=== PATIENT | male | born 1950 | race Caucasian/White ===

== ENCOUNTER 2023-11-29 19:26 | Emergency (ER) | payer MEDICARE, OTHER, SELFPAY ==
[2023-11-29 19:31] VITALS: BP 117/73
[2023-11-29 19:33] VITALS: BP 117/73
[2023-11-29 19:38] VITALS: BMI 33.6
[2023-11-29 20:00] VITALS: BP 111/65; BP 112/67
--- NOTE | 2023-11-29 20:05 | ED.GENMED ---
History of Present Illness
General
Chief Complaint: Fainting/Passed Out
Source: patient and family
Time Seen by Provider: 11/29/23 19:35
History of Present Illness
History of Present Illness:
This patient is a 73-year-old male who was out to dinner with his and another couple and he started to 'not feel good' like he might pass out associated with feeling warm. His states that he expressed this to her and then had a brief loss
of consciousness lasting a few seconds. He did not strike his head. Once he was on the ground, he was noted to be pale but conscious. They tried to sit him up and as soon as he sat up he started to feel dizzy again. They state that medics were
called, and while they were tending to him they sat him upright and patient stated 'I feel dizzy again', and had a 10 to 15-second episode of eyes open but not interacting. He was laid back down and this resolved. Patient states that he feels
perfectly well with the exception of being generally weak. Of note, he received his first dose of chemotherapy on Friday. He has been feeling generally weak with poor appetite since then. He denies headache, vertigo/spinning/imbalance, chest pain
or pressure, palpitations, dyspnea, neck pain, jaw pain, numbness, tingling, focal weakness, change in vision. He does state that for the last day or so he is felt like his abdomen is 'full' but without focal pain.
Past History
Past History
ED Past Medical History: Other (DVT/PE, esophageal cancer)
ED Past Surgical History: None
Social History
Tobacco: Non-smoker
Alcohol: None
Drug: None
Personal:
Living: with family
Phy Exam
Physical Exam
Physical Exam:
GENERAL: Alert , in no apparent distress
EYE: pupils equal and reactive
NECK: Supple, no significant adenopathy.
ENT: o/p clr, mmm.
CARDIAC: Regular rate and rhythm .
LUNGS: Clear breath sounds bilaterally, no acute respiratory distress, no wheezes/rales/rhonchi
ABDOMEN: Soft, minimal left lower quadrant tenderness, no r/g, no cvat
NEUROLOGICAL: Alert and oriented, no focal neuro deficits
SKIN: Warm and dry, skin intact.
MUSCULOSKELETAL: No edema, well perfused.
PSYCH: Normal and appropriate interaction.
Course
Orders/Labs/Results
Orders:
Orders
11/29/23 19:36
Electrocardiogram (*1) Urgent
Reason for Study: Syncope
EKG- Treatment ONCE
11/29/23 20:17
Complete Blood Count/With Diff Urgent
Comprehensive Metabolic Panel Urgent
11/29/23 20:26
CT Abd/Pel (IV only)-[facility] only Urgent
Comment:
Reason For Exam: hx esophageal cancer, c/o abd pain/bloating
Abnormal Lab Results
11/29/23
20:17
RBC 4.51 L 10^6/uL
(4.70-6.10)
Hct 38.6 L %
(39.0-52.0)
MPV 10.8 H fL
(7.4-10.4)
Abs Immat Gran (auto) 0.1 H 10^3/uL
(0-0.05)
Absolute Lymphs (auto) 0.9 L 10^3/uL
(1.2-3.4)
Immature Gran % 0.7 H %
(0-0.5)
Neutrophils % 82.0 H %
(42.2-75.2)
Lymphocytes % 11.3 L %
(20.5-51.1)
Glucose 127 H mg/dl
(70-99)
11/29/23 20:17
11/29/23 20:17
Vital Signs
Initial and Last Documented VS:
Initial Vital Signs
BP
117/73
11/29/23 19:31
Last Documented Vital Signs
Temp Pulse Resp BP Pulse Ox
97.9 F 74 15 112/67 95
11/29/23 19:33 11/29/23 21:30 11/29/23 21:30 11/29/23 21:00 11/29/23 21:30
*Critical Care Note
Total Time (30-74mins, 75-104mins- exclusive of procedures): Not Applicable
Update Note
Update Note:
Patient presents to the Emergency Department with ___syncope
Number and Complexity of Problems Addressed at the Encounter
� Chronic conditions affecting care:
� Acute Exacerbation and/or Progression of Chronic Illness:
� Differential Diagnosis includes: But not limited to chemotherapy effects, dehydration, electrolyte disorder, etc. etc.
Amount and/or Complexity of Data to be Reviewed and Analyzed
� I performed an independent evaluation of and my interpretation is:
EKG: Read by me, normal sinus rhythm with PVC, no acute ischemia
CT:VERBAL REPORT VISION...nad, but for retroperitoneal ghanshyam (suspected related to known cancer)
Xrays:
Laboratory Studies:generally unremarkable
Other:
� Review of other/old records reveals:
� Clinical information was obtained by an independent historian: who was present during the is now bedside, son who is bedside
� Prescriptions/Medications Considered but not given:
� Further testing considered but not performed:
Risk of Complications and/or Morbidity or Mortality of Patient Management
� Social determinants of health affecting care:
� Discussion with other providers (PCP, Hospitalists, Consultants, etc):
� Escalation of care including admission/observation vs risk of discharge considered: w/u generally unremarkable. Given unremarkable workup here, strongly suspects this event was either vasovagal or less likely related to recent
chemotherapy. Discussed with patient importance of hydration, follow-up, and reasons to return to the ER. Patient is asymptomatic, feels good and is hungry.
ED Attending Note
-
Portions of this chart may have been created with voice recognition software.� Occasional wrong word or��sound alike� substitutions may have occurred due to the inherent limitations of voice recognition software.
Discharge Plan
Departure
Patient Disposition: Home (Routine Discharge)
Date of Disposition: 11/29/23
Time of Disposition: 22:38
Patient with high blood pressure during this ER visit?: No
Condition: Good
Discharge Problem:
Syncope
Instructions: Syncope (Fainting) (DC)
Referrals:
Valente Keene MD [Family Provider] -
Activity Restrictions/Additional Instructions:
PLEASE SEE YOUR DOCTOR IN FOLLOW-UP THIS WEEK. IF YOU DEVELOP CHEST PAIN, DIZZINESS, HEADACHE, IMBALANCE, TROUBLE BREATHING, ABDOMINAL PAIN, VOMITING, OR OTHER WORRISOME SIGNS, PLEASE RETURN TO THE ER IMMEDIATELY.
Interventions
Interventions:
*Risk Screen - Suicide Last Done: 11/29/23 19:38
*General Assessment Last Done: 11/29/23 19:38
*Neglect/Abuse Screening Last Done: 11/29/23 19:38
ED- Fall Risk Assessment Last Done: 11/29/23 19:42
*ED COVID-19 Vaccine History Last Done: 11/29/23 19:38
ED- Cardiac Assessment Last Done: 11/29/23 19:42
ED- Neurological Assessment Last Done: 11/29/23 19:42
Discharge Date and Time
Print Language: GREENLANDIC
[2023-11-29 20:22] LABS: % Basophils 0.3 % (0-2); % Eosinophils 3.9 % (0-6); % Immature Granulocytes 0.7 % (0-0.5); % Lymphocytes 11.3 % (20.5-51.1); % Monocytes 1.8 % (1.7-9.3); Absolute Eosinophils 0.3 10^3/uL (0-0.7); Absolute Immature Granulocytes 0.1 10^3/uL (0-0.05); Absolute Lymphocytes 0.9 10^3/uL (1.2-3.4); Absolute Monocytes 0.1 10^3/uL (0.1-0.6); Absolute Neutrophils 6.2 10^3/uL (1.4-6.5); Hematocrit 38.6 % (39.0-52.0); Hemoglobin 13.1 g/dL (13.0-18.0); Mean Corp Hgb Conc. 33.9 g/dL (33.0-37.0); Mean Corpuscular Volume 85.6 fL (80.0-94.0); Mean Platelet Volume 10.8 fL (7.4-10.4); Nucleated Red Blood Cells % 0 % (-); Platelet Count 215 10^3/uL (130-400); Red Blood Cell Count 4.51 10^6/uL (4.70-6.10); Red Cell Dist. Width 13.2 % (11.5-14.5); White Blood Cell Count 7.6 10^3/uL (4.8-10.8)
[2023-11-29 20:38] LABS: ALT (SGPT) 25 U/L (0-50); AST (SGOT) 22 U/L (17-59); Albumin 3.6 g/dl (3.5-5.0); Alkaline Phosphatase 90 U/L (38-126); Blood Urea Nitrogen 15 mg/dl (9-20); Calcium 8.4 mg/dl (8.4-10.2); Carbon Dioxide 24 mmol/L (22-30); Chloride 103 mmol/L (98-107); Estimated Creatinine Clearance 94 ml/min; Glucose 127 mg/dl (70-99); Potassium 4.5 mmol/L (3.5-5.1); Sodium 136 mmol/L (135-145); Total Bilirubin 0.8 mg/dl (0.2-1.3); Total Protein 6.7 g/dl (6.3-8.2); eGFR > 60.00
[2023-11-29 21:00] VITALS: BP 112/67
== END 2023-11-29 23:17 | disposition home or self-care (01) ==
LOC: EMR 19:26
PROVIDERS: EMERGENCY PHYSICIAN Emergency Medicine; FAMILY PHYSICIAN Family Medicine
DX: R55 Syncope and collapse (principal); Z85.01 Personal history of malignant neoplasm of esophagus; Z86.718 Personal history of other venous thrombosis and embolism
CPT/HCPCS: 99284; 74177; 80053; 85025; 93005; Q9967